=== PATIENT | male | born 1945 | race Caucasian/White ===

== ENCOUNTER → 2021-08-22 | Day surgery (SDC) | payer MEDICARE ==
[~2021-08-22] VITALS: Ht 185.4 cm; Wt 77.8 kg
[~2021-08-22] MED LIST: CELEBREX **OUT100 MG PO; METOPROLOL SUCC25 MG PO
[2021-08-22 08:13] LABS: HCT 46.4 % (42.0-52.0); HGB 15.8 g/dl (13.2-18.0); MCH 30.9 pg (25.0-31.0); MCHC 34.1 g/dL (32.0-36.0); MCV 90.6 fL (78.0-100.0); MPV 8.8 fL (6.0-9.5); RBC 5.12 M/uL (4.70-6.00); RDW 13.1 % (11.5-14.0); WBC 6.1 K/uL (4.0-10.5)
[2021-08-22 08:44] LABS: ALBUMIN 3.8 g/dL (3.4-5.0); BILIRUBIN - TOTAL 0.4 mg/dL (0.2-1.0); BUN/CREAT RATIO (CALC) 16.3 RATIO; CREATININE 0.92 mg/dL (0.67-1.17); GLOBULIN (CALCULATION) 3.2 g/dL; POTASSIUM 4.1 mmol/L (3.5-5.1)
== END | disposition home or self-care (01) ==
LOC: FAS 07:28
PROVIDERS: Surgery
DX: Z12.11 Encounter for screening for malignant neoplasm of colon (principal); K57.30 Diverticulosis of large intestine without perforation or abscess without bleeding; I48.91 Unspecified atrial fibrillation; Z86.010 Personal history of colon polyps; Z95.5 Presence of coronary angioplasty implant and graft
CPT/HCPCS: 36415; 80053; J2704; J7120